=== PATIENT | male | born 1960 | race Caucasian/White ===

== ENCOUNTER 2017-03-08 07:26 | Day surgery (SDC) | payer BC ==
[~2017-03-08 07:26] MED LIST: Midazolam 1 MG/ML 2 ML SDV ONE; Propofol 200 MG/20 ML SDV ONE; fentaNYL 100 MCG/2 ML SDV ONE
[2017-03-08] MEDS ORDERED: Lactated Ringers 1,000 ML IV SCH (08:00)
[2017-03-08] MEDS ORDERED: Dextrose 5%-Lactated Ringers 1,000 ML IV SCH (08:30)
[2017-03-08] MEDS ORDERED: Glycopyrrolate 0.2 MG/ML 2 ML SDV IVPUSH ONE (08:45)
[2017-03-08] MEDS ORDERED: Pantoprazole 40 MG Vial IVPUSH ONE (09:58)
--- NOTE | 2017-03-09 16:31 | OR ---
DATE OF PROCEDURE: 03/08/2017 PREOPERATIVE DIAGNOSES: 1. Laryngopharyngeal dysphagia. 2. 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 POSTOPERATIVE DIAGNOSES: 1. Irritated-appearing hypopharynx and larynx. 2. Active gastroesophageal reflux disease with ulceration and edema of esophagogastric junction (no fibrous stricture identified, narrowing on upper GI likely related to inflammation). 3. Mild antral gastritis. OPERATIVE PROCEDURES: Esophagogastroduodenoscopy with; 1. Biopsies of antrum for CLOtest. 2. Biopsies of esophagogastric junction for histologic evaluation. 3. Dilation of esophagus with Savary dilator ([id number]). ANESTHESIA: IV sedation. INDICATION FOR PROCEDURE: This is a 56-year-old male presenting with some ongoing laryngopharyngeal dysphagia. He does recount waking up sometimes with some bile-type taste in the mouth. Presently, he has not been on any antisecretory medication. The plan is to proceed with an upper GI endoscopy with biopsies and/or dilations as indicated. It is notable that on upper GI x-ray, in addition to the thickened cricopharyngeus muscle, he was noted to have a narrowing in the distal esophagus. Potential risks of the procedure including bleeding and perforation were discussed, and the patient wishes to proceed. DETAILS OF PROCEDURE: The patient was taken to the operating room and placed in a left lateral decubitus position. IV sedation was administered, after which the upper GI endoscope was passed orally through the length of the esophagus and into the stomach with retroflexion view of the fundus, and thereafter through the pyloric channel and into the proximal duodenum. Findings included hypopharynx and larynx, which were mildly reddened. The upper esophageal sphincter was otherwise unremarkable. There was no mass effect or anatomic abnormalities noted within the laryngopharyngeal area or the upper esophageal sphincter. the esophageal body was unremarkable at the EG junction; however, there was quite active gastroesophageal reflux disease. 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 There was no fibrous-type stricturing or gross evidence of neoplasia. Within the antrum of the stomach, there was some patchy redness, otherwise, the remainder of the stomach was unremarkable. The pyloric channel and duodenum to the junction of the third and fourth portions were unremarkable. At this point, biopsies were obtained from the antrum and sent for CLOtest for H. pylori. Multiple biopsies were then obtained from esophagogastric junction and sent for histologic evaluation. Minimal bleeding from the biopsy sites was seen. Following this then, a guidewire was placed into the stomach and the gastroscope removed. Over the guidewire a 53[place] Savary dilator was placed. This was passed without difficulty and was held in position for 1 minute, after which, the dilator was removed, and the patient was taken to the recovery room in a satisfactory condition. Plan will be to give the patient some IV Protonix in the recovery room. It is difficult for him to take pills, so we will start him on Prevacid SoluTabs 30 mg a day and set him up to see Dr. Kuo in 3 to 4 weeks. Should the patient's symptoms of reflux not be controlled with medications, he would otherwise be a good candidate for a surgical antireflux procedure and referral back to Dr. Hillman could occur at that time. Ryan Hillman MD /[id number]
== END 2017-03-08 11:09 | disposition home or self-care (01) ==
LOC: JP.SDS 07:26
PROVIDERS: ATTEND Surgery
DX: K29.50 Unspecified chronic gastritis without bleeding (principal); K21.9 Gastro-esophageal reflux disease without esophagitis; K44.9 Diaphragmatic hernia without obstruction or gangrene; K22.10 Ulcer of esophagus without bleeding
CPT/HCPCS: 43239; 43248; 87081; C9113; J2250; J2704; J3010; J7042; 88305; 88312; J3490

== ENCOUNTER 2024-10-23 15:00 | Emergency (ER) | payer OTHER, MEDICARE ==
[2024-10-23 16:26] LABS: BASOPHILS ABSOLUTE AUTO 0.05 K/uL (0.00-0.10); BASOPHILS PERCENT AUTO 0.6 % (0.1-1.3); EOSINOPHILS ABSOLUTE AUTO 0.17 K/uL (0.00-0.40); EOSINOPHILS PERCENT AUTO 2.2 % (0.0-5.4); HEMATOCRIT 44.7 % (38.4-49.7); HEMOGLOBIN 15.9 g/dL (12.9-16.9); IMMATURE GRAN ABSOLUTE AUTO 0.02 K/uL (0.00-0.23); IMMATURE GRAN PERCENT AUTO 0.3 % (0.0-0.7); LYMPHOCYTES ABSOLUTE AUTO 2.25 K/uL (0.8-3.3); LYMPHOCYTES PERCENT AUTO 29.2 % (11.4-47.7); MEAN CORPUSCULAR HEMOGLOBIN 30.8 pg (31.6-35.5); MEAN CORPUSCULAR HGB CONC 35.6 g/dL (31.6-35.5); MEAN CORPUSCULAR VOLUME 86.6 fL (81.4-99.0); MONOCYTES ABSOLUTE AUTO 0.84 K/uL (0.20-0.90); MONOCYTES PERCENT AUTO 10.9 % (3.3-12.6); NEUTROPHILS ABSOLUTE AUTO 4.37 K/uL (1.0-7.6); NEUTROPHILS PERCENT AUTO 56.8 % (40.0-78.1); PLATELET COUNT,PLT 167 K/uL (130-375); RED BLOOD CELL COUNT 5.16 M/uL (4.14-5.76); WHITE BLOOD CELL COUNT,WBC 7.7 K/uL (3.2-11.0)
[2024-10-23 16:51] LABS: A/G RATIO 1.2 (1.2-2.2); ALANINE AMINOTRANSFERASE,ALT 88 U/L (12-78); ALBUMIN 4.3 g/dL (3.4-5.0); ALKALINE PHOSPHATASE 87 U/L (46-116); ASPARTATE AMNIOTRANSFERASE,AST 48 U/L (15-37); BILIRUBIN TOTAL 1.4 mg/dL (0.2-1.0); BLOOD UREA NITROGEN,BUN 13 mg/dL (7-18); CALCIUM 9.3 mg/dL (8.5-10.1); CARBON DIOXIDE,CO2 27 mmol/L (21-32); CHLORIDE,CL 102 mmol/L (100-108); CREATININE 0.9 mg/dL (0.8-1.3); EST CRCL DRUG DOSING (CG) 100.46 mL/min; ESTIMATED GFR 95 mL/min (>60); GLUCOSE RANDOM 94 mg/dL (74-106); POTASSIUM,K 4.2 mmol/L (3.6-5.2); PROTEIN TOTAL,TP 7.9 g/dL (6.4-8.2); SODIUM,NA 139 mmol/L (140-148)
[2024-10-23 16:53] LABS: ANION GAP 14.2 mmol/L (5.0-14.0); C-REACTIVE PROTEIN < 0.50 mg/dL (<0.50)
== END 2024-10-23 17:57 | disposition home or self-care (01) ==
LOC: JP.ED 15:00
DX: K02.9 Dental caries, unspecified (principal); Z79.899 Other long term (current) drug therapy
CPT/HCPCS: 36415; 80053; 83605; 85025; 86140; 99283; 99284